=== PATIENT | female | born 1945 | race Caucasian/White ===

== ENCOUNTER 2017-09-06 00:53 | Emergency (ER) | payer OTHER ==
[~2017-09-06] VITALS: Ht 154.9 cm; Wt 52.2 kg
[2017-09-06] MEDS ORDERED: ZOLOFT25 MG PO (01:13)
[2017-09-06] MEDS ORDERED: TRAZODONE HCL50 MG PO (01:13)
[2017-09-06] MEDS ORDERED: MORPHINE SULFAT15 M3 PO (03:05)
[2017-09-06 03:47] VITALS: BP 167/70
== END 2017-09-06 03:45 | disposition home or self-care (01) ==
LOC: ER 00:53
DX: S00.83XA Contusion of other part of head, initial encounter (principal); M54.2 Cervicalgia; W06.XXXA Fall from bed, initial encounter; Y93.89 Activity, other specified; Y92.89 Other specified places as the place of occurrence of the external cause; Y99.8 Other external cause status

== ENCOUNTER 2018-12-04 17:39 | Emergency (ER) | payer OTHER ==
[~2018-12-04] VITALS: Ht 152.4 cm; Wt 52.2 kg
[~2018-12-04 17:39] MED LIST: MORPHINE SULFAT15 M3 PO; TRAZODONE HCL50 MG PO; ZOLOFT25 MG PO
[2018-12-04] MEDS ORDERED: NAMENDA 5 MG TAB5 M1 PO (17:58)
[2018-12-04] MEDS ORDERED: WELLBUTRIN 75 M75 M1 PO (17:58)
[2018-12-04 18:25] LABS: HEMATOCRIT 44.6 % (37.0-47.0); HEMOGLOBIN 14.8 gm/dL (12.0-15.0); MCH 30.7 pg (26.0-34.0); MCHC 33.1 g/dL (28.0-37.0); MCV 92.8 fL (80.0-100.0); RBC 4.81 mil/uL (4.20-5.00); RDW 13.5 % (10.5-14.5); WBC 5.7 thou/uL (4.0-11.0)
[2018-12-04 18:32] LABS: CALCIUM 9.7 mg/dL (8.5-10.1); CREATININE 1.1 mg/dL (0.6-1.0)
[2018-12-04 18:37] LABS: PROTIME 9.7 Seconds (9.3-11.4)
[2018-12-04] MEDS ORDERED: CYCLOBENZAPRINE5 MG PO (19:47)
[2018-12-04] MEDS ORDERED: PERCOCET 5-3251 EACH PO (19:52)
[2018-12-04 19:55] VITALS: BP 162/81
== END 2018-12-04 20:15 | disposition home or self-care (01) ==
LOC: ER 17:39
PROVIDERS: Physician Assistant
DX: M25.511 Pain in right shoulder (principal); R07.81 Pleurodynia; V89.2XXA Person injured in unspecified motor-vehicle accident, traffic, initial encounter; Y92.89 Other specified places as the place of occurrence of the external cause; Y93.89 Activity, other specified

== ENCOUNTER → 2019-08-31 | Outpatient (CLI) | payer OTHER ==
[~2019-08-31] MED LIST changes: +CYCLOBENZAPRINE5 MG PO; +NAMENDA 5 MG TAB5 M1 PO; +PERCOCET 5-3251 EACH PO; +WELLBUTRIN 75 M75 M1 PO
== END ==
LOC: RAD 12:23
PROVIDERS: ATTEND Family Medicine
DX: Z12.31 Encounter for screening mammogram for malignant neoplasm of breast (principal)

== ENCOUNTER → 2019-09-15 | Outpatient (CLI) | payer OTHER | LOC: CAT 09:48 | PROVIDERS: ATTEND Family Medicine | DX: Z13.6 Encounter for screening for cardiovascular disorders (principal); I25.10 Atherosclerotic heart disease of native coronary artery without angina pectoris; E78.00 Pure hypercholesterolemia, unspecified ==

== ENCOUNTER → 2019-12-15 | Outpatient (CLI) | payer OTHER | LOC: RAD 09:44 | PROVIDERS: ATTEND Family Medicine | DX: M17.11 Unilateral primary osteoarthritis, right knee (principal) ==